=== PATIENT | male | born 1945 | race Caucasian/White ===

== ENCOUNTER 2018-03-28 08:09 | Day surgery (SDC) | payer MEDICARE ==
[~2018-03-28] VITALS: Ht 172.7 cm; Wt 92.1 kg
[~2018-03-28 08:09] MED LIST: ASPI325T PO; ATOR80TA59 PO; BALANCED SALT IRRIGATION SOLUTION 500ML BAG (FOR OR EYE MACHINE) As Ordered ONE; CARV6.25 PO; CEFUROXIME 1MG/0.1ML INTRACAMERAL INJ As Ordered ONE; DUOVISC (0.50ML VISCOAT/0.55ML PROVISC) OPHTH KIT As Ordered ONE; GLUC1CAP10 PO; HYDR25TAB PO; KRIL1000 PO; LEVO125T4 PO; LIDOCAINE 0.75%/EPINEPHRINE 0.025% IN BSS 1ML SYR INTRACAMERAL (OR ONLY) As Ordered ONE; LOSA100T50 PO; MIDAZOLAM INJ 2 MG/2 ML VIAL (J2250) As Ordered ONE; MULT1TAB10 PO; OFLOXACIN 0.3 % (OCUFLOX) OPTH SOL 5ML OS ONE; PHENYLEPHRINE 2.5% OPHTH SOL 2ML OS ONE; PLAV1TAB2 PO; POVIDONE-IODINE 5% OPHTH PREP SOL 30ML As Ordered ONE; PROPARACAINE 0.5% OPHTH SOL 15ML OS ONE; PROT1TAB2 PO; TRES100I SC; TROPICAMIDE 1% OPHTH SOLN 2ML OS ONE; fentaNYL 100 MCG/2 ML INJECTION (J3010) As Ordered ONE
[2018-03-28] MEDS ORDERED: OSTETAB3 PO (09:07)
[2018-03-28 11:50] VITALS: BP 146/67
--- NOTE | 2018-03-28 16:21 | RO ---
DATE OF PROCEDURE: 03/28/2018 PREOPERATIVE DIAGNOSIS: 1. Visually significant nuclear sclerotic cataract left eye. POSTOPERATIVE DIAGNOSIS: 1. Visually significant nuclear sclerotic cataract left eye. PROCEDURE: 1. Cataract extraction with use of phacoemulsification and placement of intraocular lens, AU00T0, 21.5 D, left eye. SURGEON: Chidi Marie DO MANAGER OF COMPENSATION: None. ANESTHESIA: Local with monitored anesthesia care (MAC). COMPLICATIONS: None. POSTOPERATIVE CONDITION: Stable. INDICATIONS FOR SURGERY: 1. Blurred vision affecting patients activities of daily living. DESCRIPTION OF PROCEDURE: The patient was seen in the preoperative area and properly identified. The correct operative eye was identified and marked. The patient received topical anesthetic, antibiotics, and topical dilating drops. The patient was then transferred to the operating room. The correct side was re-identified, and a time-out was performed. The eye was prepped and draped in a sterile fashion. The eyelids were isolated with Tegaderm tape, and the lids were held open with an adjustable speculum. A 1.0 mm paracentesis incision was made. Intraocular preservative-free Shugarcaine was then injected into the anterior chamber. Viscoelastic was then injected into the anterior chamber through the paracentesis. Using a 2.4 mm sharp-tipped keratome, the anterior chamber was entered via a temporal clear cornea incision. A continuous curvilinear capsulorrhexis was created with Utrata forceps. Hydrodissection was performed with balanced salt solution (BSS) on a blunt cannula until the nucleus was able to rotate freely. The crystalline lens was phacoemulsified and aspirated. Irrigation/aspiration was used to remove the cortical material. Cohesive viscoelastic was placed into the capsular bag to deepen it. The implant was placed into the capsular bag and allowed to unfold. Placement was confirmed by visualizing the anterior capsulorrhexis. Irrigation/aspiration was used to remove the viscoelastic. The clear corneal incision was hydrated with BSS on a blunt cannula. The lens was well positioned. The incisions were then tested for leaks and found to be negative. The eye was then palpated for appropriate pressure and adjusted accordingly with BSS. The eyelid speculum was then carefully removed. A shield was placed over the eye. The patient tolerated the procedure well and was discharged to the recovery unit in a stable condition. LYNN
== END 2018-03-28 12:07 | disposition home or self-care (01) ==
LOC: M SDC 08:09
PROVIDERS: ATTEND Ophthalmology
DX: H25.12 Age-related nuclear cataract, left eye (principal); I10 Essential (primary) hypertension; I25.10 Atherosclerotic heart disease of native coronary artery without angina pectoris; E78.5 Hyperlipidemia, unspecified; E11.3212 Type 2 diabetes mellitus with mild nonproliferative diabetic retinopathy with macular edema, left eye; E03.9 Hypothyroidism, unspecified; K21.9 Gastro-esophageal reflux disease without esophagitis; R06.02 Shortness of breath; J44.9 Chronic obstructive pulmonary disease, unspecified; R06.83 Snoring; Z79.899 Other long term (current) drug therapy; Z79.82 Long term (current) use of aspirin; Z86.718 Personal history of other venous thrombosis and embolism; Z86.711 Personal history of pulmonary embolism; Z79.01 Long term (current) use of anticoagulants; Z87.891 Personal history of nicotine dependence; Z95.5 Presence of coronary angioplasty implant and graft
CPT/HCPCS: 66984; J2250; J3010; V2632

== ENCOUNTER 2018-04-04 07:00 | Day surgery (SDC) | payer MEDICARE ==
[~2018-04-04] VITALS: Ht 172.7 cm; Wt 92.7 kg
[~2018-04-04 07:00] MED LIST changes: +ACETAMINOPHEN 325 MG TAB PO PRN; -MIDAZOLAM INJ 2 MG/2 ML VIAL (J2250) As Ordered ONE; +OFLOXACIN 0.3 % (OCUFLOX) OPTH SOL 5ML OD ONE; -OFLOXACIN 0.3 % (OCUFLOX) OPTH SOL 5ML OS ONE; +OSTETAB3 PO; +PHENYLEPHRINE 2.5% OPHTH SOL 2ML OD ONE; -PHENYLEPHRINE 2.5% OPHTH SOL 2ML OS ONE; +PROPARACAINE 0.5% OPHTH SOL 15ML OD ONE; -PROPARACAINE 0.5% OPHTH SOL 15ML OS ONE; +TROPICAMIDE 1% OPHTH SOLN 2ML OD ONE; -TROPICAMIDE 1% OPHTH SOLN 2ML OS ONE; -fentaNYL 100 MCG/2 ML INJECTION (J3010) As Ordered ONE
[2018-04-04] MEDS ORDERED: fentaNYL 100 MCG/2 ML INJECTION (J3010) As Ordered ONE (07:13)
[2018-04-04] MEDS ORDERED: MIDAZOLAM INJ 2 MG/2 ML VIAL (J2250) As Ordered ONE (07:13)
[2018-04-04 08:30] VITALS: BP 134/61
[2018-04-04] MEDS ORDERED: TRIMETHOBENZAMIDE 300 MG CAP PO PRN (08:45)
--- NOTE | 2018-04-05 15:37 | RO ---
DATE OF PROCEDURE: 04/04/2018 PREOPERATIVE DIAGNOSIS: 1. Visually significant nuclear sclerotic cataract right eye. POSTOPERATIVE DIAGNOSIS: 1. Visually significant nuclear sclerotic cataract right eye. PROCEDURE: 1. Cataract extraction with use of phacoemulsification and placement of intraocular lens, AU00T0, 22.0 D, right eye. SURGEON: Chidi Marie DO CLINICAL MANAGER: None. ANESTHESIA: Local with monitored anesthesia care (MAC). COMPLICATIONS: None. POSTOPERATIVE CONDITION: Stable. INDICATIONS FOR SURGERY: 1. Blurred vision affecting patients activities of daily living. DESCRIPTION OF PROCEDURE: The patient was seen in the preoperative area and properly identified. The correct operative eye was identified and marked. The patient received topical anesthetic, antibiotics, and topical dilating drops. The patient was then transferred to the operating room. The correct side was re-identified, and a time-out was performed. The eye was prepped and draped in a sterile fashion. The eyelids were isolated with Tegaderm tape, and the lids were held open with an adjustable speculum. A 1.0 mm paracentesis incision was made. Intraocular preservative-free Shugarcaine was then injected into the anterior chamber. Viscoelastic was then injected into the anterior chamber through the paracentesis. Using a 2.4 mm sharp-tipped keratome, the anterior chamber was entered via a temporal clear cornea incision. A continuous curvilinear capsulorrhexis was created with Utrata forceps. Hydrodissection was performed with balanced salt solution (BSS) on a blunt cannula until the nucleus was able to rotate freely. The crystalline lens was phacoemulsified and aspirated. Irrigation/aspiration was used to remove the cortical material. Cohesive viscoelastic was placed into the capsular bag to deepen it. The implant was placed into the capsular bag and allowed to unfold. Placement was confirmed by visualizing the anterior capsulorrhexis. Irrigation/aspiration was used to remove the viscoelastic. The clear corneal incision was hydrated with BSS on a blunt cannula. The lens was well positioned. The incisions were then tested for leaks and found to be negative. The eye was then palpated for appropriate pressure and adjusted accordingly with BSS. The eyelid speculum was then carefully removed. A shield was placed over the eye. The patient tolerated the procedure well and was discharged to the recovery unit in a stable condition.
== END 2018-04-04 08:40 | disposition home or self-care (01) ==
LOC: M SDC 07:00
PROVIDERS: ATTEND Ophthalmology
DX: H25.11 Age-related nuclear cataract, right eye (principal); I10 Essential (primary) hypertension; I25.10 Atherosclerotic heart disease of native coronary artery without angina pectoris; E11.3299 Type 2 diabetes mellitus with mild nonproliferative diabetic retinopathy without macular edema, unspecified eye; E78.5 Hyperlipidemia, unspecified; E03.9 Hypothyroidism, unspecified; K21.9 Gastro-esophageal reflux disease without esophagitis; J44.9 Chronic obstructive pulmonary disease, unspecified; R06.83 Snoring; R06.02 Shortness of breath; Z79.899 Other long term (current) drug therapy; Z79.01 Long term (current) use of anticoagulants; Z79.82 Long term (current) use of aspirin; Z79.84 Long term (current) use of oral hypoglycemic drugs; Z95.5 Presence of coronary angioplasty implant and graft; Z86.711 Personal history of pulmonary embolism; Z86.718 Personal history of other venous thrombosis and embolism
CPT/HCPCS: 66984; J2250; J3010; V2632

== ENCOUNTER → 2018-10-15 | Outpatient (REF) ==
[~2018-10-15] MED LIST changes: -ACETAMINOPHEN 325 MG TAB PO PRN; +ASPI-1 PO; -ASPI325T PO; -BALANCED SALT IRRIGATION SOLUTION 500ML BAG (FOR OR EYE MACHINE) As Ordered ONE; -CEFUROXIME 1MG/0.1ML INTRACAMERAL INJ As Ordered ONE; -DUOVISC (0.50ML VISCOAT/0.55ML PROVISC) OPHTH KIT As Ordered ONE; -LIDOCAINE 0.75%/EPINEPHRINE 0.025% IN BSS 1ML SYR INTRACAMERAL (OR ONLY) As Ordered ONE; -OFLOXACIN 0.3 % (OCUFLOX) OPTH SOL 5ML OD ONE; -PHENYLEPHRINE 2.5% OPHTH SOL 2ML OD ONE; -POVIDONE-IODINE 5% OPHTH PREP SOL 30ML As Ordered ONE; -PROPARACAINE 0.5% OPHTH SOL 15ML OD ONE; -TROPICAMIDE 1% OPHTH SOLN 2ML OD ONE
== END ==
LOC: M LAB LCGH 10:20
PROVIDERS: ATTEND Internal Medicine
DX: Z00.00 Encounter for general adult medical examination without abnormal findings (principal)

== ENCOUNTER → 2023-02-23 | Outpatient (CLI) | payer MEDICARE ==
[~2023-02-23] MED LIST changes: +CLOP75TA99 PO; +HYDR-3490 PO; -HYDR25TAB PO; +LOSA100T46 PO; -LOSA100T50 PO; -PLAV1TAB2 PO
== END ==
LOC: M ONCR 12:37
PROVIDERS: ATTEND General Practice
DX: C32.0 Malignant neoplasm of glottis (principal); Z71.2 Person consulting for explanation of examination or test findings; Z79.82 Long term (current) use of aspirin; Z79.4 Long term (current) use of insulin; Z79.890 Hormone replacement therapy; Z79.899 Other long term (current) drug therapy; Z80.1 Family history of malignant neoplasm of trachea, bronchus and lung; Z87.891 Personal history of nicotine dependence
CPT/HCPCS: 31575; G0463

== ENCOUNTER → 2023-04-04 | Outpatient (RCR) | payer MEDICARE ==
[~2023-04-04] MED LIST changes: +LIDO15SO PO; +MAGICMW SSP; +OXYC1SOL3 PO
== END ==
LOC: M ONCR 03-06 10:21
PROVIDERS: ATTEND General Practice
DX: Z51.0 Encounter for antineoplastic radiation therapy (principal); C32.0 Malignant neoplasm of glottis

== ENCOUNTER → 2023-05-03 | Outpatient (RCR) | payer MEDICARE | LOC: M ONCR 04-05 08:19 | PROVIDERS: ATTEND General Practice | DX: Z51.0 Encounter for antineoplastic radiation therapy (principal); C32.0 Malignant neoplasm of glottis ==

== ENCOUNTER 2023-05-04 08:09 | Outpatient (RCR) | payer MEDICARE ==
[~2023-05-04 08:09] MED LIST changes: -LIDO15SO PO; +LIDO15SO8 PO
[2023-05-09] MEDS ORDERED: GUAI100L6 PO (12:57)
== END 2023-06-03 ==
LOC: M ONCR 08:09
PROVIDERS: ATTEND General Practice
DX: Z51.0 Encounter for antineoplastic radiation therapy (principal); C32.0 Malignant neoplasm of glottis

== ENCOUNTER → 2023-05-15 | Outpatient (CLI) | payer MEDICARE ==
[~2023-05-15] MED LIST changes: +GUAI100L6 PO
== END ==
LOC: M ONCR 10:16
PROVIDERS: ATTEND General Practice
DX: C32.0 Malignant neoplasm of glottis (principal); Z92.3 Personal history of irradiation

== ENCOUNTER → 2023-08-07 | Outpatient (CLI) | payer MEDICARE | LOC: M ONCR 10:25 | PROVIDERS: ATTEND General Practice | DX: C32.0 Malignant neoplasm of glottis (principal); Z87.891 Personal history of nicotine dependence; Z71.2 Person consulting for explanation of examination or test findings; Z79.82 Long term (current) use of aspirin; Z79.01 Long term (current) use of anticoagulants; Z79.899 Other long term (current) drug therapy; Z79.890 Hormone replacement therapy; Z92.3 Personal history of irradiation | CPT/HCPCS: 31575; G0463 ==

== ENCOUNTER → 2023-11-07 | Outpatient (CLI) | payer MEDICARE | LOC: M ONCR 10:17 | PROVIDERS: ATTEND General Practice | DX: Z08 Encounter for follow-up examination after completed treatment for malignant neoplasm (principal); Z85.21 Personal history of malignant neoplasm of larynx; Z79.82 Long term (current) use of aspirin; Z79.890 Hormone replacement therapy; Z79.899 Other long term (current) drug therapy; Z87.891 Personal history of nicotine dependence; Z92.3 Personal history of irradiation | CPT/HCPCS: 31575; G0463 ==

== ENCOUNTER → 2024-02-06 | Outpatient (CLI) | payer MEDICARE | LOC: M ONCR 10:37 | PROVIDERS: ATTEND General Practice | DX: C32.0 Malignant neoplasm of glottis (principal); Z87.891 Personal history of nicotine dependence; Z79.02 Long term (current) use of antithrombotics/antiplatelets; Z79.4 Long term (current) use of insulin; Z79.82 Long term (current) use of aspirin; Z79.890 Hormone replacement therapy; Z79.899 Other long term (current) drug therapy; Z92.3 Personal history of irradiation | CPT/HCPCS: 31575; G0463 ==

== ENCOUNTER → 2024-05-06 | Outpatient (CLI) | payer MEDICARE ==
[~2024-05-06] MED LIST changes: +TRET0.0516 TOP
== END ==
LOC: M ONCR 10:39
PROVIDERS: ATTEND General Practice
DX: Z08 Encounter for follow-up examination after completed treatment for malignant neoplasm (principal); Z85.21 Personal history of malignant neoplasm of larynx; Z92.3 Personal history of irradiation; Z87.891 Personal history of nicotine dependence; Z79.82 Long term (current) use of aspirin; Z79.4 Long term (current) use of insulin; Z79.02 Long term (current) use of antithrombotics/antiplatelets; Z79.890 Hormone replacement therapy; Z79.899 Other long term (current) drug therapy
CPT/HCPCS: 31575; G0463

== ENCOUNTER → 2025-02-05 | Outpatient (CLI) | payer MEDICARE ==
[~2025-02-05] MED LIST changes: +TRET0.1C19 TOP
== END ==
LOC: M ONCR 09:27
PROVIDERS: ATTEND General Practice
DX: Z08 Encounter for follow-up examination after completed treatment for malignant neoplasm (principal); Z85.818 Personal history of malignant neoplasm of other sites of lip, oral cavity, and pharynx; R49.0 Dysphonia; Z87.891 Personal history of nicotine dependence; Z79.02 Long term (current) use of antithrombotics/antiplatelets; Z79.4 Long term (current) use of insulin; Z79.82 Long term (current) use of aspirin; Z79.899 Other long term (current) drug therapy; Z92.3 Personal history of irradiation
CPT/HCPCS: 31575; G0463